=== PATIENT | male | born 2000 ===

== ENCOUNTER 2023-12-09 19:12 | Outpatient (REF) | payer MEDICAID, SELFPAY | END 2023-12-09 19:13 | disposition home or self-care (01) | LOC: LBN 19:12 | PROVIDERS: Visit Provider Physician Assistant | DX: N50.82 Scrotal pain (principal) | CPT/HCPCS: 87086 ==

== ENCOUNTER → 2023-12-10 10:16 | Outpatient (CLI) | payer MEDICAID, SELFPAY ==
--- NOTE | 2023-12-10 | DI.US_ITS ---
Exam(s) US SCROTUM EXAM: US SCROTUM CLINICAL HISTORY: SCROTAL PAIN N50.82 R/O MASS, LESION, HYDROCELE. TECHNIQUE: Scrotal ultrasound performed using grayscale, color-flow and spectral Doppler analysis. COMPARISON: No exams were available for comparison FINDINGS: Right testicle: 0.8 x 2.1 x 3.0 cm Echogenicity: Normal. Contour: Smooth. Mass: None seen. Microlithiasis: None. Hydrocele: None. Variocele: None. Hernia: No peristalsing bowel loop identified. Epididymis: There is a 3 mm spermatocele present. Left testicle: 4.9 x 1.8 x 3.1 cm Echogenicity: Normal. Contour: Smooth. Mass: None seen. Microlithiasis: None. Hydrocele: None. Variocele: None. Hernia: No peristalsing bowel loop identified. Epididymis: Was not well visualized on this examination but no gross abnormality is seen in the regio n of the epididymis. No findings to suggest epididymitis or mass. DOPPLER: Color: Symmetric and uniform, no hyperemia. Soft tissues: There is a 2.4 x 0.5 x 1.1 cm sonographically benign-appearing lymph node in the left i nguinal region. IMPRESSION: Normal appearing bilateral testicles. No evidence of a testicular mass or hydrocele. DATA REPOSITORY:
== END ==
PROVIDERS: Visit Provider Physician Assistant
DX: N50.82 Scrotal pain (principal)
CPT/HCPCS: 76870